=== PATIENT | female | born 1935 ===

== ENCOUNTER 2022-09-22 07:49 | Outpatient (CLI) | payer OTHER | END 2022-09-22 08:02 | disposition home or self-care (01) | LOC: NUCLEAR 07:49 | PROVIDERS: ATTEND Internal Medicine | DX: I11.9 Hypertensive heart disease without heart failure (principal); I25.10 Atherosclerotic heart disease of native coronary artery without angina pectoris; I65.23 Occlusion and stenosis of bilateral carotid arteries ==